=== PATIENT | female | born 1995 | race Caucasian/White ===

== ENCOUNTER 2024-04-06 14:42 | Outpatient (CLI) | payer OTHER, SELFPAY ==
[2024-04-06 14:38] LABS: Microscopic, Urine URINE MICROSCOPIC (MICROSCOPIC)
[2024-04-06 15:17] LABS: Appearance,Urine CLEAR (Clear); Bilirubin,Urine Negative (Negative); Blood, Urine TRACE-I (Negative); Color,Urine YELLOW (Yellow); Glucose,Urine (UA) Negative (Negative); Ketones,Urine Negative (Negative); Leukocyte Esterase,Urine Negative (Negative); Nitrate,Urine Negative (Negative); PH,Urine 6.5 (5.0-8.5); Protein,Urine Negative (Negative); Specific Gravity, Urine <= 1.005 (1.005-1.030); Urobilinogen,Urine 0.2 EU/dl (0.2)
[2024-04-06 15:35] LABS: Basophils # 0.1 K/mm3 (0-0.2); Basophils % 0.6 % (0.1-2.0); Eosinophils # 0.1 K/mm3 (0.0-0.4); Eosinophils % 0.7 % (0.1-12.0); Hematocrit 44.5 % (37.0-47.0); Hemoglobin 14.6 g/dL (12.2-16.2); Lymphocytes # 1.7 K/mm3 (0.7-4.5); Lymphocytes % 17.7 % (10-50); Mean Corpuscular HGB Conc 32.9 g/dL (31.8-35.4); Mean Corpuscular Hemoglobin 29.4 pg (27.0-31.2); Mean Corpuscular Volume 89.3 fl (81-99); Mean Platelet Volume 8.2 fl (7.4-10.4); Monocytes # 0.3 K/mm3 (0.1-1.0); Monocytes % 3.5 % (1.7-9.3); Neutrophils # 7.2 K/mm3 (1.8-7.8); Neutrophils % 77.5 % (37.0-80.0); Platelet Count 299 K/mm3 (142-424); Red Blood Count 4.98 M/mm3 (4.20-5.40); Red Cell Distribution Width 13.7 % (11.5-17.5); White Blood Count 9.3 K/mm3 (4.8-10.8)
[2024-04-06 15:40] LABS: Bacteria,Urine Trace /lpf; Squamous Epithelial Cell,Urine Occasional #/hpf (0-5); WBC,Urine Occasional #/hpf (0-3)
[2024-04-06 15:52] LABS: Hemoglobin A1C 4.9 % (4.0-6.0)
[2024-04-06 16:00] LABS: Alanine Aminotransferase 27 U/L (12-78); Albumin Level 4.4 g/dl (3.5-5.0); Albumin/Globulin Ratio 1.4 (1.1-1.8); Alkaline Phosphatase 98 U/L (38-126); Anion Gap 12.5 mEq/L (5-15); Aspartate Amino Transferase 25 U/L (14-36); Bilirubin,Total 0.6 mg/dl (0.2-1.3); Blood Urea Nitrogen 8 mg/dl (7-17); Calcium 9.7 mg/dl (8.4-10.2); Carbon Dioxide 25 mmol/L (22.0-30.0); Chloride 107 mmol/L (98-107); Chol/HDL Ratio 3.5 (1-3.5); Cholesterol 195 mg/dl (140-200); Estimated Glomerular Filt Rate 117 ml/min (>60); GFR (African American) 142 ML/MIN (>60); Globulin 3.1 g/dL (1.3-3.2); Glucose 85 mg/dl (74-100); HDL Cholesterol 55 mg/dl (40-60); Potassium 4.5 mmoL/L (3.5-5.1); Sodium 140 mmol/L (136-145); Total Protein,Serum 7.5 g/dl (6.3-8.2); Triglycerides 85 mg/dl (30-150); VLDL Cholesterol 17 mg/dL (0-40)
[2024-04-06 16:10] LABS: Direct LDL Cholesterol 110.83 mg/dL (100-129)
[2024-04-06 16:16] LABS: 25-OH Vitamin D, Total 31.8 ng/mL (30-100)
[2024-04-06 16:20] LABS: Free T4 (Free Thyroxine) 1.07 ng/dl (0.78-2.19)
[2024-04-06 16:32] LABS: Thyroid Stimulating Hormone 2.13 uIU/mL (0.465-4.68)
[2024-04-06 16:51] LABS: Vitamin B12 989 pg/mL (239-931)
[2024-04-06 17:15] LABS: Iron 73 ug/dL (37-170)
[2024-04-06 17:24] LABS: Total Iron Binding Capacity 457 ug/dL (265-497)
[2024-04-06 17:53] LABS: Ferritin 11.2 ng/ml (6.24-137)
[2024-04-07 06:54] LABS: HCV Ab Non Reactive (Non Reactive)
[2024-04-07 10:03] LABS: HIV (1&2) Antibody Rapid NONREACTIVE (NONREACTIVE)
[2024-04-07 21:10] LABS: Neisseria gonorrhoeae, NAA Negative (Negative)
== END 2024-04-06 23:59 | disposition home or self-care (01) ==
LOC: LAB.DROPOF 14:42
PROVIDERS: PCP Nurse Practitioner Family; Visit Provider Nurse Practitioner Family
DX: R53.83 Other fatigue (principal); Z11.3 Encounter for screening for infections with a predominantly sexual mode of transmission; Z13.1 Encounter for screening for diabetes mellitus; Z11.59 Encounter for screening for other viral diseases; Z13.220 Encounter for screening for lipoid disorders; Z11.4 Encounter for screening for human immunodeficiency virus [HIV]
CPT/HCPCS: 86703; 86803; 80050; 80053; 80061; 81001; 82306; 82607; 82728; 83036; 83540; 83550; 84439; 84443; 85025; 87086; 87491; 87591